=== PATIENT | male | born 1960 | race Caucasian/White ===

== ENCOUNTER 2022-12-04 06:12 | Day surgery (SDC) | payer BC ==
[2022-12-04] MEDS ORDERED: Lactated Ringers 1,000 ML IV SCH (07:00)
[2022-12-04] MEDS ORDERED: Midazolam 1 MG/ML 2 ML SDV ONE (08:15)
[2022-12-04] MEDS ORDERED: fentaNYL 50 MCG/ML SDV ONE (08:15)
[2022-12-04] MEDS ORDERED: Propofol 200 MG/20 ML SDV ONE (08:21)
== END 2022-12-04 09:30 | disposition home or self-care (01) ==
LOC: JP.SDS 06:12
PROVIDERS: ATTEND Student in an Organized Health Care Education/Training Program
DX: K29.50 Unspecified chronic gastritis without bleeding (principal); K21.00 Gastro-esophageal reflux disease with esophagitis, without bleeding; I10 Essential (primary) hypertension; Z79.899 Other long term (current) drug therapy
CPT/HCPCS: 43239; 88305; J2250; J2704; J3010; J7120